=== PATIENT | female | born 1990 ===

== ENCOUNTER 2021-01-27 07:35 | Inpatient (IN) | payer MEDICAID ==
[~2021-01-27] VITALS: Ht 160 cm; Wt 125.0 kg
[2021-01-28] VITALS (64 sets, daily range): BP systolic 100–155; BP diastolic 52–97; PULSE 58–104; TEMP 97.2–98.4
--- NOTE | 2021-01-28 06:25 | NUR ---
PT ARRIVES AMBULATORY TO UNIT FOR SCHEDULED IOL. ORIENTED TO LABOR ROOM AND ASSISTED INTO GOWN. PLACED ON EFM/TOCO. CATEGORY 1 STRIP NOTED WITH NO CONTRACTIONS. PT REPORTS SHE HAS BEEN FEELING CONTRACTIONS X2 DAYS INTERMITTENTLY. DENIES LEAKING OF FLUID AND REPORTS POSITIVE MOVEMENT. EDUCATED ON POC. DENIES FURTHER QUESTIONS OR CONCERNS AT THIS TIME.
[2021-01-28] MEDS ORDERED: PRENATAL (06:57)
[2021-01-28] MEDS ORDERED: OSCAL 500 TAB500 MG PO (06:58)
[2021-01-28 07:43] LABS: BASO % 0.2 % (0.0-2.0); EOS # 0.1 K/mm3 (0.0-0.7); GRAN # 6.5 K/mm3 (1.4-6.5); GRAN % 71.6 % (42.2-75.2); HEMOGLOBIN 10.4 g/dl (12.5-16.0); LYMPH # 1.9 K/mm3 (1.2-3.4); LYMPH % 21.3 % (20.0-51.0); MEAN CELL VOLUME 86 fl (80.0-100.0); MEAN CORPUSCULAR HEMOGLOBIN 28 pg (27.0-31.0); MEAN CORPUSCULAR HGB CONC 32 g/dl (33.0-37.0); MEAN PLATELET VOLUME 10.3 fl (7.4-10.4); MONO # 0.4 K/mm3 (0.1-0.6); MONO % 4.7 % (1.7-9.3); PLATELET COUNT 196 K/mm3 (130-400); RED BLOOD COUNT 3.78 M/mm3 (4.10-5.30); REDCELL DISTRIBUTION WIDTH-CV 14.4 % (11.5-14.5)
[2021-01-28 07:46] LABS: HEMATOCRIT 32.5 % (37.0-47.0)
--- NOTE | 2021-01-28 12:45 | NUR ---
VERBAL ORDERS PER DR.ROLES TO INCREASE PIT TO NEW MAX OF 30MU/HR PER PROTOCOL.
--- NOTE | 2021-01-28 16:58 | NUR ---
PT TO EDGE OF BED FOR EPIDURAL PLACEMENT. DIFFICULTY TRACING TOCO DUE TO MATERNAL POSITIONING. FIRM CONTRACTIONS PALPATED Q1.5-2MIN BY THIS NURSE. CATEGORY 1 STRIP NOTED WITH SCALP ELECTRODE IN PLACE. EDUCATED PROVIDED BY TODD CUMMINS. 1658: SINGLE SHOT PER TODD CUMMINS AT THIS TIME, PT TOLERATED PROCEDURE WELL. VITAL SIGNS REMAIN STABLE. CATEGORY 1 STRIP THROUGHOUT PROCEDURE.
--- NOTE | 2021-01-28 21:16 | NUR ---
2115- DR. STYLES AND THIS RN TO BEDSIDE FOR [facility] PLACEMENT. 2119- [facility] PLACED. PATIENT TOLERATED WELL. SVE UNCHANGED. DR. STYLES DISCUSSED PLAN OF CARE AND POSSIBLE OPTIONS AND ANSWERED PATIENT QUESTIONS. PATIENT VERBALIZED UNDERSTANDING. PATIENT ASSISTED TO WR POSITION WITH PEANUT BALL. CALL LIGHT WITHIN REACH.
--- NOTE | 2021-01-28 22:30 | NUR ---
2230- ROLES AND THIS RN TO BEDSIDE FOR SVE. SVE UNCHANGED PER PROVIDER. DISCUSSED OPTIONS AND POSSIBLE SECTION WITH PATIENT. ANSWERED QUESTIONS. PATIENT AND SPOUSE GOING TO DISCUSS AND DECIDE HOW THEY WANT TO PROCEED FROM HERE. CALL LIGHT WITHIN REACH.
[2021-01-29] VITALS (18 sets, daily range): BP systolic 105–136; BP diastolic 46–75; PULSE 68–84; TEMP 98–99.4
--- NOTE | 2021-01-29 09:19 | NUR ---
Initial visit; Parents thanked Rad Technologist for offering congratulations and God's blessings for the of their daughter. Rad Technologist thanked family for choosing our hospital.
[2021-01-30 08:00] VITALS: BP 107/77; PULSE 87; TEMP 98.1
--- NOTE | 2021-01-30 08:15 | NUR ---
Sits up in bed, alert. Percocet 7/325 mg one given as ordered and per request. States having issues with . Let patient know to call when next.
[2021-01-30] MEDS ORDERED: IBU800 M1 PO (10:55)
[2021-01-30] MEDS ORDERED: PERCOCET 325 MG1 TA3 PO (10:56)
--- NOTE | 2021-01-30 14:30 | NUR ---
Discharge instructions given, verbalizes understanding.
== END 2021-01-30 14:50 | disposition home or self-care (01) | DRG 787 ==
LOC: OB 01-28 06:17 → LDR 01-28 06:17 → OB 01-28 07:35 → LDR 01-28 23:38 → OB 01-29 00:30
PROVIDERS: ADMIT Obstetrics & Gynecology
PROC: 10D00Z1 Extraction of Products of Conception, Low, Open Approach (ICD-10-PCS; principal; 2021-01-28)
PROC: 3E033VJ Introduction of Other Hormone into Peripheral Vein, Percutaneous Approach (ICD-10-PCS; 2021-01-28)
DX: O13.4 Gestational [pregnancy-induced] hypertension without significant proteinuria, complicating childbirth (principal); O99.354 Diseases of the nervous system complicating childbirth; O99.344 Other mental disorders complicating childbirth; F41.9 Anxiety disorder, unspecified; F32.A Depression, unspecified; O99.214 Obesity complicating childbirth; O69.81X0 Labor and delivery complicated by cord around neck, without compression, not applicable or unspecified; G40.909 Epilepsy, unspecified, not intractable, without status epilepticus; O62.1 Secondary uterine inertia; Z3A.39 39 weeks gestation of pregnancy; Z37.0 Single live birth
CPT/HCPCS: J0690; J1100; J1885; J2405; J2590; J3010; J7120